=== PATIENT | female | born 1985 | race Caucasian/White ===

== ENCOUNTER → 2016-09-04 | Outpatient (CLI) | payer OTHER ==
[2016-09-04 09:51] LABS: ALBUMIN 3.9 GM/DL (3.2-5.2); ALBUMIN/GLOBULIN RATIO 1.18 (1.00-1.93); ALKALINE PHOSPHATASE 57 U/L (45-117); ALT/SGPT 27 U/L (12-78); ANION GAP 7 MEQ/L (8-16); AST/SGOT 15 U/L (15-37); BILIRUBIN,TOTAL 0.5 MG/DL (0.2-1.0); BLOOD UREA NITROGEN 13 MG/DL (7-18); CALCIUM LEVEL 8.9 MG/DL (8.5-10.1); CARBON DIOXIDE LEVEL 29 MEQ/L (21-32); CHLORIDE LEVEL 106 MEQ/L (98-107); CREATININE FOR GFR 0.68 MG/DL (0.55-1.02); FREE T4 0.84 NG/DL (0.76-1.46); GLOMERULAR FILTRATION RATE > 60.0 (>60); GLUCOSE, FASTING 77 MG/DL (70-105); POTASSIUM SERUM 4.3 MEQ/L (3.5-5.1); SODIUM LEVEL 142 MEQ/L (136-145); THYROID PEROXIDASE ANTIBODY < 28.0 U/ML (<60.0); TOTAL PROTEIN 7.2 GM/DL (6.4-8.2)
== END ==
LOC: M LAB 08:29
PROVIDERS: ATTEND Family Medicine
DX: R63.5 Abnormal weight gain (principal); R94.6 Abnormal results of thyroid function studies

== ENCOUNTER → 2017-01-01 | Outpatient (CLI) | payer OTHER ==
[2017-01-01 07:12] LABS: ANION GAP 7 MEQ/L (8-16); BLOOD UREA NITROGEN 14 MG/DL (7-18); CALCIUM LEVEL 8.5 MG/DL (8.5-10.1); CARBON DIOXIDE LEVEL 29 MEQ/L (21-32); CHLORIDE LEVEL 106 MEQ/L (98-107); CREATININE FOR GFR 0.74 MG/DL (0.55-1.02); GLOMERULAR FILTRATION RATE > 60.0 (>60); GLUCOSE, FASTING 84 MG/DL (70-105); POTASSIUM SERUM 3.8 MEQ/L (3.5-5.1); SODIUM LEVEL 142 MEQ/L (136-145)
== END ==
LOC: M LAB 06:11
PROVIDERS: ATTEND Family Medicine
DX: R73.9 Hyperglycemia, unspecified (principal)

== ENCOUNTER → 2017-01-04 | Outpatient (REF) | payer OTHER | LOC: M LAB REF 17:03 | PROVIDERS: ATTEND Family Medicine | DX: N76.0 Acute vaginitis (principal) ==

== ENCOUNTER → 2017-01-09 | Outpatient (CLI) | payer OTHER ==
[2017-01-09 16:09] LABS: FREE T4 0.9 NG/DL (0.76-1.46)
[2017-01-11 09:45] LABS: FOLLICLE STIMULATING HORMONE 14.8 mIU/mL; LUTEINIZING HORMONE 33.9 mIU/mL
== END ==
LOC: M LAB 14:43
PROVIDERS: ATTEND Family Medicine
DX: L68.0 Hirsutism (principal); F33.1 Major depressive disorder, recurrent, moderate

== ENCOUNTER → 2017-03-31 | Outpatient (CLI) | payer OTHER ==
[2017-03-31 10:18] LABS: FOLLICLE STIMULATING HORMONE 7.7 mIU/mL; LUTEINIZING HORMONE 8.4 mIU/mL
== END ==
LOC: M LAB 06:10
PROVIDERS: ATTEND Family Medicine
DX: E66.09 Other obesity due to excess calories (principal)

== ENCOUNTER → 2017-04-28 | Outpatient (REF) | payer OTHER | LOC: M LAB REF 17:18 | PROVIDERS: ATTEND Physician Assistant Medical | DX: Z11.3 Encounter for screening for infections with a predominantly sexual mode of transmission (principal) ==

== ENCOUNTER → 2017-05-01 | Outpatient (CLI) | payer OTHER | LOC: M LAB 12:39 | PROVIDERS: ATTEND Physician Assistant Medical | DX: Z11.3 Encounter for screening for infections with a predominantly sexual mode of transmission (principal) ==

== ENCOUNTER → 2017-05-17 | Outpatient (REF) | payer OTHER | LOC: M LAB REF 17:09 | PROVIDERS: ATTEND Family Medicine | DX: R30.0 Dysuria (principal) ==

== ENCOUNTER → 2017-07-23 | Outpatient (REF) | payer OTHER | LOC: M LAB REF 15:54 | PROVIDERS: ATTEND Physician Assistant Medical | DX: N93.8 Other specified abnormal uterine and vaginal bleeding (principal) ==

== ENCOUNTER → 2017-08-17 | Outpatient (REF) | payer OTHER | LOC: M LAB REF 12:46 | PROVIDERS: ATTEND Family Medicine | DX: R30.0 Dysuria (principal); Z11.3 Encounter for screening for infections with a predominantly sexual mode of transmission ==

== ENCOUNTER → 2017-09-13 | Outpatient (REF) | payer OTHER | LOC: M LAB REF 09-14 13:19 | DX: R30.0 Dysuria (principal) ==

== ENCOUNTER → 2017-11-14 | Outpatient (REF) | payer OTHER | LOC: M LAB REF 18:36 | DX: R30.0 Dysuria (principal) | CPT/HCPCS: 87186 ==

== ENCOUNTER → 2018-02-24 | Outpatient (CLI) | payer OTHER ==
[2018-02-25 17:44] LABS: HEPATITIS C VIRUS ABY INDEX 0.1 INDEX (<0.8)
[2018-02-25 17:46] LABS: HIV 1&2 SCREEN CENTAUR NEGATIVE (NEGATIVE)
== END ==
LOC: M SMT 15:18
DX: T74.21XA Adult sexual abuse, confirmed, initial encounter (principal); Y07.9 Unspecified perpetrator of maltreatment and neglect

== ENCOUNTER → 2018-02-24 | Outpatient (CLI) | payer OTHER ==
[2018-02-24 17:15] LABS: BASO # 0.1 10^3/uL (0.0-0.2); BASO % 0.5 % (0.0-1.0); EOS # 0.2 10^3/uL (0.0-0.50); EOS % 1.7 % (0.0-3.0); HEMATOCRIT 36.9 % (36.0-47.0); HEMOGLOBIN 12.4 g/dl (12.0-15.5); IMMATURE GRANULOCYTE % 0.3 % (0-3.0); LYMPH # 2.4 10^3/uL (1.5-4.5); LYMPH % 24.7 % (24.0-44.0); MEAN CORPUSCULAR HEMOGLOBIN 31.2 pg (27.0-33.0); MEAN CORPUSCULAR HGB CONC 33.6 g/dl (32.0-36.5); MEAN CORPUSCULAR VOLUME 92.7 fl (80.0-96.0); MONO # 0.6 10^3/uL (0.0-0.8); MONO % 6.2 % (0.0-5.0); NEUTROPHILS # 6.5 10^3/uL (1.8-7.7); NEUTROPHILS % 66.6 % (36.0-66.0); PLATELET COUNT, AUTOMATED 350 10^3/uL (150-450); RED BLOOD COUNT 3.98 10^6/uL (4.00-5.40); RED CELL DISTRIBUTION WIDTH 11.9 % (11.5-14.5); WHITE BLOOD COUNT 9.8 10^3/uL (4.0-10.0)
[2018-02-24 17:31] LABS: TOTAL 25(OH) VITAMIN D 35.8 NG/ML (30.0-100.0)
[2018-02-24 17:35] LABS: FREE T4 0.74 NG/DL (0.76-1.46)
== END ==
LOC: M SMT 15:15
DX: Z13.29 Encounter for screening for other suspected endocrine disorder (principal); F33.1 Major depressive disorder, recurrent, moderate
CPT/HCPCS: 84443

== ENCOUNTER → 2018-05-06 | Outpatient (REF) | payer OTHER | LOC: M LAB REF 15:27 | DX: R30.0 Dysuria (principal) | CPT/HCPCS: 87186 ==

== ENCOUNTER → 2018-06-24 | Outpatient (REF) | payer OTHER ==
[2018-06-24 14:34] LABS: CHLAMYDIA DNA AMPLIFICATION NEGATIVE (NEGATIVE); GC DNA AMPLIFICATION NEGATIVE (NEGATIVE)
== END ==
LOC: M LAB REF 11:40
DX: N39.0 Urinary tract infection, site not specified (principal)
CPT/HCPCS: 87086

== ENCOUNTER → 2018-10-16 | Outpatient (CLI) | payer OTHER ==
[~2018-10-16] MED LIST: CIPR-249 PO; DULO1CAP3 PO; OCEL3TAB PO; RALT40TA PO; TOPI50TA9 PO; TRUVTAB PO; ZOFR4TAB14 PO
[2018-10-16 17:20] LABS: BASO # 0.1 10^3/uL (0.0-0.2); BASO % 0.5 % (0.0-1.0); EOS # 0.2 10^3/uL (0.0-0.50); EOS % 1.7 % (0.0-3.0); HEMATOCRIT 40.3 % (36.0-47.0); HEMOGLOBIN 13.3 g/dl (12.0-15.5); LYMPH # 3.1 10^3/uL (1.5-4.5); MEAN CORPUSCULAR HEMOGLOBIN 30.2 pg (27.0-33.0); MEAN CORPUSCULAR VOLUME 91.4 fl (80.0-96.0); MONO # 0.7 10^3/uL (0.0-0.8); MONO % 7.3 % (0.0-5.0); NEUTROPHILS # 5.9 10^3/uL (1.8-7.7); NEUTROPHILS % 59.2 % (36.0-66.0); PLATELET COUNT, AUTOMATED 327 10^3/uL (150-450); RED BLOOD COUNT 4.41 10^6/uL (4.00-5.40)
[2018-10-16 17:39] LABS: ALBUMIN 3.7 GM/DL (3.2-5.2); ALT/SGPT 31 U/L (12-78); BILIRUBIN,TOTAL 0.3 MG/DL (0.2-1.0); BLOOD UREA NITROGEN 12 MG/DL (7-18); CARBON DIOXIDE LEVEL 24 MEQ/L (21-32); CHLORIDE LEVEL 106 MEQ/L (98-107); FREE T4 0.89 NG/DL (0.76-1.46); GLOMERULAR FILTRATION RATE > 60.0 (>60); GLUCOSE, FASTING 75 MG/DL (70-100); IRON (FE) 131 UG/DL (50-170); PERCENT SATURATION 36.8 % (13.2-45.0); POTASSIUM SERUM 4.5 MEQ/L (3.5-5.1); SODIUM LEVEL 139 MEQ/L (136-145); TOTAL IRON BINDING CAPACITY 356 UG/DL (250-450); TOTAL PROTEIN 7.5 GM/DL (6.4-8.2)
== END ==
LOC: M WUC 13:27
PROVIDERS: ATTEND Physician Assistant
DX: R30.0 Dysuria (principal); R42 Dizziness and giddiness

== ENCOUNTER → 2018-10-25 | Outpatient (REF) | payer OTHER ==
[2018-10-25 22:04] LABS: CHLAMYDIA DNA AMPLIFICATION NEGATIVE (NEGATIVE); GC DNA AMPLIFICATION NEGATIVE (NEGATIVE)
== END ==
LOC: M LAB REF 17:11
PROVIDERS: ATTEND Physician Assistant
DX: N76.0 Acute vaginitis (principal)

== ENCOUNTER → 2019-04-08 | Outpatient (CLI) | payer OTHER ==
[~2019-04-08] MED LIST changes: -DULO1CAP3 PO; +DULO1CAP6 PO
[2019-04-08 09:19] LABS: BASO % 0.6 % (0.0-1.0); EOS # 0.2 10^3/uL (0.0-0.50); EOS % 3.2 % (0.0-3.0); HEMATOCRIT 39.4 % (36.0-47.0); HEMOGLOBIN 12.7 g/dl (12.0-15.5); LYMPH # 1.9 10^3/uL (1.5-4.5); LYMPH % 29.9 % (24.0-44.0); MEAN CORPUSCULAR HEMOGLOBIN 30.1 pg (27.0-33.0); MEAN CORPUSCULAR HGB CONC 32.2 g/dl (32.0-36.5); MEAN CORPUSCULAR VOLUME 93.4 fl (80.0-96.0); MONO # 0.4 10^3/uL (0.0-0.8); MONO % 7.1 % (0.0-5.0); NEUTROPHILS # 3.6 10^3/uL (1.8-7.7); NEUTROPHILS % 58.9 % (36.0-66.0); PLATELET COUNT, AUTOMATED 326 10^3/uL (150-450); RED BLOOD COUNT 4.22 10^6/uL (4.00-5.40); WHITE BLOOD COUNT 6.2 10^3/uL (4.0-10.0)
[2019-04-08 10:00] LABS: ALBUMIN 3.3 GM/DL (3.2-5.2); ALT/SGPT 27 U/L (12-78); BILIRUBIN,TOTAL 0.2 MG/DL (0.2-1.0); BLOOD UREA NITROGEN 15 MG/DL (7-18); CARBON DIOXIDE LEVEL 24 MEQ/L (21-32); CHLORIDE LEVEL 112 MEQ/L (98-107); CREATININE FOR GFR 0.75 MG/DL (0.55-1.30); FREE T4 0.74 NG/DL (0.76-1.46); GLOMERULAR FILTRATION RATE > 60.0 (>60); GLUCOSE, FASTING 94 MG/DL (70-100); POTASSIUM SERUM 4.5 MEQ/L (3.5-5.1); SODIUM LEVEL 144 MEQ/L (136-145); TOTAL PROTEIN 6.9 GM/DL (6.4-8.2)
[2019-04-10 11:32] LABS: THYROID PEROXIDASE ANTIBODY < 28.0 U/ML (<60.0)
== END ==
LOC: M LAB 08:41
PROVIDERS: ATTEND Physician Assistant
DX: Z13.29 Encounter for screening for other suspected endocrine disorder (principal)

== ENCOUNTER → 2019-08-07 | Outpatient (CLI) | payer OTHER ==
[2019-08-07 07:27] LABS: BASO # 0.1 10^3/uL (0.0-0.2); BASO % 0.6 % (0.0-1.0); EOS # 0.2 10^3/uL (0.0-0.5); HEMATOCRIT 40.5 % (36.0-47.0); HEMOGLOBIN 12.9 g/dl (12.0-15.5); LYMPH # 1.9 10^3/uL (1.5-5.0); LYMPH % 20.4 % (24.0-44.0); MEAN CORPUSCULAR HEMOGLOBIN 30.3 pg (27.0-33.0); MEAN CORPUSCULAR HGB CONC 31.9 g/dl (32.0-36.5); MEAN CORPUSCULAR VOLUME 95.1 fl (80.0-96.0); MONO # 0.5 10^3/uL (0.0-0.8); MONO % 5.8 % (0.0-5.0); NEUTROPHILS # 6.5 10^3/uL (1.5-8.5); PLATELET COUNT, AUTOMATED 318 10^3/uL (150-450); RED BLOOD COUNT 4.26 10^6/uL (4.00-5.40); WHITE BLOOD COUNT 9.1 10^3/uL (4.0-10.0)
[2019-08-07 08:04] LABS: ALBUMIN 3.4 GM/DL (3.2-5.2); ALT/SGPT 29 U/L (12-78); BILIRUBIN,TOTAL 0.4 MG/DL (0.2-1.0); BLOOD UREA NITROGEN 14 MG/DL (7-18); CALCIUM LEVEL 9.2 MG/DL (8.5-10.1); CARBON DIOXIDE LEVEL 24 MEQ/L (21-32); CHLORIDE LEVEL 109 MEQ/L (98-107); CREATININE FOR GFR 0.94 MG/DL (0.55-1.30); FREE T4 0.82 NG/DL (0.76-1.46); GLOMERULAR FILTRATION RATE > 60.0 (>60); GLUCOSE, FASTING 84 MG/DL (70-100); POTASSIUM SERUM 4.5 MEQ/L (3.5-5.1); SODIUM LEVEL 140 MEQ/L (136-145); TOTAL PROTEIN 7.2 GM/DL (6.4-8.2)
== END ==
LOC: M LAB 06:51
PROVIDERS: ATTEND Physician Assistant
DX: Z13.29 Encounter for screening for other suspected endocrine disorder (principal)

== ENCOUNTER → 2019-10-06 | Outpatient (CLI) | payer OTHER ==
[2019-10-06 16:18] LABS: BASO % 0.5 % (0.0-1.0); EOS # 0.2 10^3/uL (0.0-0.5); EOS % 2.1 % (0.0-3.0); HEMATOCRIT 38.7 % (36.0-47.0); HEMOGLOBIN 12.5 g/dl (12.0-15.5); LYMPH # 2.4 10^3/uL (1.5-5.0); LYMPH % 26.9 % (24.0-44.0); MEAN CORPUSCULAR HEMOGLOBIN 31.1 pg (27.0-33.0); MEAN CORPUSCULAR HGB CONC 32.3 g/dl (32.0-36.5); MEAN CORPUSCULAR VOLUME 96.3 fl (80.0-96.0); MONO # 0.6 10^3/uL (0.0-0.8); MONO % 6.3 % (0.0-5.0); NEUTROPHILS # 5.6 10^3/uL (1.5-8.5); NEUTROPHILS % 63.9 % (36.0-66.0); PLATELET COUNT, AUTOMATED 314 10^3/uL (150-450); RED BLOOD COUNT 4.02 10^6/uL (4.00-5.40); WHITE BLOOD COUNT 8.7 10^3/uL (4.0-10.0)
[2019-10-06 16:25] LABS: ALBUMIN 3.3 GM/DL (3.2-5.2); ALT/SGPT 26 U/L (12-78); BILIRUBIN,TOTAL 0.2 MG/DL (0.2-1.0); BLOOD UREA NITROGEN 16 MG/DL (7-18); CALCIUM LEVEL 8.9 MG/DL (8.5-10.1); CARBON DIOXIDE LEVEL 24 MEQ/L (21-32); CHLORIDE LEVEL 110 MEQ/L (98-107); CREATININE FOR GFR 0.81 MG/DL (0.55-1.30); GLOMERULAR FILTRATION RATE > 60.0 (>60); GLUCOSE, FASTING 100 MG/DL (70-100); POTASSIUM SERUM 4.4 MEQ/L (3.5-5.1); RHEUMATOID FACTOR QUANT < 10.0 IU/ML (<15.0); SODIUM LEVEL 140 MEQ/L (136-145); TOTAL PROTEIN 6.8 GM/DL (6.4-8.2)
[2019-10-06 16:33] LABS: TOTAL 25(OH) VITAMIN D 30.1 NG/ML (30.0-100.0)
[2019-10-06 17:45] LABS: ERYTHROCYTE SEDIMENTATION RATE 45 mm/hr (0-20)
[2019-10-10 00:07] LABS: ANTINUCLEAR ANTIBODIES DIRECT Negative (Negative)
== END ==
LOC: M WUC 12:15
PROVIDERS: ATTEND Psychiatry & Neurology Neurology
DX: R51 Headache (principal)

== ENCOUNTER → 2019-10-28 | Outpatient (CLI) | payer OTHER ==
--- NOTE | 2019-10-31 17:37 | SLEEPCENT ---
DATE OF PROCEDURE: 10/28/2019 ORDERED BY: LUI Ruiz Nocturnal polysomnography was performed for evaluation of sleep physiology in this patient with a history of excessive somnolence, snoring, morning headaches and nonrestorative sleep. 7 hours and 5 minutes of data were reviewed. There were 364.5 minutes of sleep identified. Sleep latency was mildly prolonged at 36.5 minutes. Rapid eye movement (REM) latency was more so prolonged at 144 minute. Sleep architecture was good with two REM cycles noted. Overall sleep efficiency was 87.3%. The electrocardiogram showed a sinus rhythm with an average heart rate of 78 beats per minute. Rate ranged 60-90. EEG showed normal waveforms for awake and sleep. There were only 8 respiratory events identified of 10 seconds in duration or greater for an apnea-hypopnea index well within normal limits at 1.3. Some snoring was noted, but respiratory related arousals occurred only 0.5 times per hour. There were no oxygen desaturations. Minimal activity in the limb leads. No trains of events. Limb movement arousal index 4.1. IMPRESSION: Normal nocturnal polysomnography with snoring.
== END ==
LOC: M SLEEP 20:00
PROVIDERS: ATTEND Nurse Practitioner Adult Health
DX: G47.30 Sleep apnea, unspecified (principal)

== ENCOUNTER → 2019-11-03 | Outpatient (CLI) | payer OTHER ==
[2019-11-03 08:49] LABS: FREE T4 0.81 NG/DL (0.76-1.46); THYROID STIMULATING HORMONE 2.55 uIU/ML (0.358-3.740)
[2019-11-03 09:03] LABS: THYROGLOBULIN ANTIBODY 17.7 U/ML (<60.0)
== END ==
LOC: M LAB 07:26
PROVIDERS: ATTEND Family Medicine
DX: R94.6 Abnormal results of thyroid function studies (principal); R51 Headache

== ENCOUNTER → 2019-11-03 | Outpatient (CLI) | payer OTHER | LOC: M LAB 07:28 | PROVIDERS: ATTEND Psychiatry & Neurology Neurology | DX: R51 Headache (principal) ==

== ENCOUNTER 2019-12-26 08:12 | Emergency (ER) | payer OTHER ==
[~2019-12-26] VITALS: Ht 167.6 cm; Wt 94.0 kg
[2019-12-26] MEDS ORDERED: LEXA1TAB2 PO (08:22)
[2019-12-26] MEDS ORDERED: SUMA50TA2 (08:22)
[2019-12-26] MEDS ORDERED: BUPR150T3 (08:22)
[2019-12-26] MEDS ORDERED: KETOROLAC 30 MG/ML 1ML VIAL IV ONE (08:45)
[2019-12-26] MEDS ORDERED: NS 1,000 ML IV ONE (08:45)
[2019-12-26] MEDS ORDERED: ISOVUE-370 76% 100ML VIAL As Ordered ONE (08:57)
[2019-12-26 09:04] LABS: BASO # 0.1 10^3/uL (0.0-0.2); BASO % 0.4 % (0.0-1.0); EOS # 0.1 10^3/uL (0.0-0.5); EOS % 0.4 % (0.0-3.0); HEMATOCRIT 40.2 % (36.0-47.0); HEMOGLOBIN 13.5 g/dl (12.0-15.5); LYMPH # 1.9 10^3/uL (1.5-5.0); LYMPH % 13.7 % (24.0-44.0); MEAN CORPUSCULAR HEMOGLOBIN 31.1 pg (27.0-33.0); MEAN CORPUSCULAR HGB CONC 33.6 g/dl (32.0-36.5); MEAN CORPUSCULAR VOLUME 92.6 fl (80.0-96.0); NEUTROPHILS % 78.1 % (36.0-66.0); PLATELET COUNT, AUTOMATED 339 10^3/uL (150-450); RED BLOOD COUNT 4.34 10^6/uL (4.00-5.40); WHITE BLOOD COUNT 14.1 10^3/uL (4.0-10.0)
[2019-12-26 09:27] LABS: ALBUMIN 3.4 GM/DL (3.2-5.2); BILIRUBIN,DIRECT 0.1 MG/DL (0.0-0.2); BILIRUBIN,TOTAL 0.4 MG/DL (0.2-1.0); TOTAL PROTEIN 7.4 GM/DL (6.4-8.2)
[2019-12-26] MEDS ORDERED: NORC1TAB7 PO (09:59)
[2019-12-26 10:07] VITALS: BP 120/67
--- NOTE | 2019-12-26 10:09 | REP ---
REASON FOR EXAM: Right-sided pain. PRIORS: None. CONTRAST: 100 mL of Isovue 370. The lung bases are clear. The liver, spleen, pancreas, adrenal glands, and left kidney are within normal limits. Surgical clips are see in the gallbladder fossa from previously cholecystectomy. There is moderate right-sided hydronephrosis and right renal enlargement. There is proximal right-sided hydroureter. There is a 9 mm sized ureteroliths responsible for the findings. This ureterolith is approximately 4 cm from the ureteropelvic junction. There is a small amount of right perinephric fluid. The left renal vein is retroaortic. The abdominal aorta and para-aortic regions are otherwise unremarkable. The bowel loops and their mesenteries are within normal limits. The appendix is well visualized and is within normal limits. There is no free air within the abdomen. There is no free fluid or air in the pelvis. There is no evidence of a pelvic mass. The pelvic bowel loops are within normal limits. Bone window technique throughout the examination shows the osseous structures to be within normal limits. IMPRESSION: There is a proximal right ureterolith as described above with resultant findings. Electronically Signed by Umer Brand DO 12/26/2019 10:23 A
[2020-01-01] MEDS ORDERED: MAGN200T PO (14:14)
[2020-01-01] MEDS ORDERED: IRON325T2 PO (14:14)
[2020-01-01] MEDS ORDERED: OMEP-218 PO (14:14)
[2020-01-01] MEDS ORDERED: VITA500079 PO (14:14)
== END 2019-12-26 10:18 | disposition home or self-care (01) ==
LOC: M ED 08:12
DX: N20.1 Calculus of ureter (principal); N13.39 Other hydronephrosis; D72.829 Elevated white blood cell count, unspecified; E78.5 Hyperlipidemia, unspecified; F32.9 Major depressive disorder, single episode, unspecified; G43.909 Migraine, unspecified, not intractable, without status migrainosus; Z87.440 Personal history of urinary (tract) infections; K21.9 Gastro-esophageal reflux disease without esophagitis; Z88.2 Allergy status to sulfonamides; Z79.899 Other long term (current) drug therapy
CPT/HCPCS: 74177; 80047; 80076; 81001; 83690; 84702; 85025; 87040; 87086; 96374; 99284; J1885; Q9967

== ENCOUNTER → 2020-01-01 | Outpatient (CLI) | payer OTHER ==
[~2020-01-01] MED LIST changes: +BUPR150T3; +IRON325T2 PO; +LEXA1TAB2 PO; +MAGN200T PO; +NORC1TAB7 PO; +OMEP-218 PO; +SUMA50TA2; +VITA500079 PO
== END ==
LOC: M LABSMTC 10:56
PROVIDERS: ATTEND Anesthesiology
DX: Z01.818 Encounter for other preprocedural examination (principal); Z11.59 Encounter for screening for other viral diseases
CPT/HCPCS: C9803; U0003

== ENCOUNTER 2020-01-04 08:47 | Day surgery (SDC) | payer OTHER ==
[~2020-01-04] VITALS: Ht 167.6 cm; Wt 93.9 kg
[~2020-01-04 08:47] MED LIST changes: +LR 1,000 ML IV ONE; +ceFAZolin SOD 2 GM in IV 1 EA IV ONE
[2020-01-04 09:26] LABS: INR 0.98; PROTHROMBIN TIME 12.7 SECONDS (11.8-14.0)
[2020-01-04] MEDS ORDERED: SCOPOLAMINE 1MG TRANSDERMAL PATCH As Ordered ONE (09:53)
[2020-01-04] MEDS ORDERED: SCOPOLAMINE 1MG TRANSDERMAL PATCH TOP ONE (10:00)
[2020-01-04] MEDS ORDERED: CONRAY-60 60% 50ML VIAL (Q9961) As Ordered ONE (10:02)
[2020-01-04] MEDS ORDERED: fentaNYL 100 MCG/2 ML INJECTION (J3010) As Ordered ONE (10:06)
[2020-01-04] MEDS ORDERED: dexameTHASONE 4 MG/ML 1ML VIAL (J1100 PER 1MG) As Ordered ONE (10:06)
[2020-01-04] MEDS ORDERED: ONDANSETRON 4MG/2ML VIAL As Ordered ONE (10:06)
[2020-01-04] MEDS ORDERED: MIDAZOLAM INJ 2MG/2ML VIAL (J2250 PER 1MG) As Ordered ONE (10:06)
[2020-01-04] MEDS ORDERED: LIDOCAINE 2% 100MG/5ML SDV (FOR ANES.) As Ordered ONE (10:06)
[2020-01-04] MEDS ORDERED: propofoL 200 MG/20 ML VIAL As Ordered ONE ×2 (10:07→12:07)
[2020-01-04] MEDS ORDERED: ACETAMINOPHEN 1000MG 100ML IV BTL (OFIRMEV) (J0131 PER 10MG) As Ordered ONE (10:32)
[2020-01-04] MEDS ORDERED: PHENYLephrine HCL 500 MCG/5 ML (100MCG/ML) SYRINGE (J2370) As Ordered ONE (10:47)
[2020-01-04] MEDS ORDERED: PERCOCET 5MG/325MG TAB PO PRN (11:30)
[2020-01-04] MEDS ORDERED: ONDANSETRON 4MG/2ML VIAL IV PRN (11:30)
[2020-01-04] MEDS ORDERED: oxyBUTYnin 5 MG TAB PO PRN (11:30)
[2020-01-04] MEDS ORDERED: fentaNYL 100 MCG/2 ML INJECTION (J3010) IV PRN (11:30)
[2020-01-04] MEDS ORDERED: oxyCODONE 5MG TAB PO PRN (11:30)
[2020-01-04] MEDS ORDERED: LR 1,000 ML IV SCH (11:30)
--- NOTE | 2020-01-04 12:02 | REP ---
C-ARM VIEWS ABDOMEN AND PELVIS: Three C-arm views of the abdomen and pelvis performed during placement of a right ureteral stent. Contrast partially opacifies the right pelvicaliceal system. Right ureteral stent is placed with the proximal end coiled in the renal pelvis in the distal end of the urinary bladder. 15 seconds of fluoroscopy time utilized. Electronically Signed by Alexis Fagan MD 01/04/2020 12:58 P
[2020-01-04 13:17] VITALS: BP 119/83
--- NOTE | 2020-01-09 10:41 | RO ---
DATE OF PROCEDURE: 01/04/2020 PREPROCEDURE DIAGNOSIS: Right kidney stones. POSTPROCEDURE DIAGNOSIS: Right kidney stones. PROCEDURE: Cystoscopy, right ureteroscopy with laser lithotripsy and basket extraction of stones, right retrograde pyelogram with intraoperative interpretation of the images, right ureteral stent placement. SURGEON: Dr. Jin Parks. HOUSEKEEPING ROOM ATTENDANT: None. ANESTHESIA: General. OPERATIVE INDICATIONS: This is a 34-year-old female who was found to have an obstructing 9 mm proximal right ureteral stone as well as an additional small stone in the kidney. She was brought to the operating room today for treatment. DESCRIPTION OF PROCEDURE: The patient brought to the operating room and general anesthesia was induced. Prophylactic antibiotics were infused. She was then placed in the dorsal lithotomy position and prepped and draped in the usual sterile fashion. A rigid cystoscope was inserted into the urethral meatus and advanced into the bladder. The guidewire was advanced up the right collecting system. The ureteral access sheath was then advanced up the right collecting system. I went up the access sheath with a flexible ureteroscope and no stones were seen in the proximal ureter. The right kidney was thoroughly examined and the patient had a few small stones in the mid pole calices. The 9 mm stone appeared to have been pushed up into the kidney and was now in the lower pole calyx. The smaller stones were removed using a basket. The 9 mm stone was repositioned into another calyx and then it was broken down into smaller pieces using the 272 micron laser fiber. All the fragments were then removed using a basket. Once I thought all the fragments were removed, a retrograde pyelogram was performed and was notable for mild right hydronephrosis with no extravasation. I then withdrew the ureteroscope along with the access sheath and no additional stones were seen in the ureter. I utilized the wire to advance a 6-[place] x 22-32 cm JJ ureteral stent into the right collecting system. The wire was removed and there were adequate curls of the stent in the right renal pelvis and in the bladder. The bladder was then emptied of all fluids. This marked the conclusion of the procedure. The patient was taken out of the dorsal lithotomy position, awakened from anesthesia and transported to the recovery room in stable condition. ESTIMATED BLOOD LOSS: 5 mm. COMPLICATIONS: None. SPECIMENS: Kidney stone fragments. PLAN: The patient will followup in clinic in a week or two for stent removal. MTDD
== END 2020-01-04 13:35 | disposition home or self-care (01) ==
LOC: M SDC 08:47
PROVIDERS: ATTEND Urology
DX: N20.1 Calculus of ureter (principal); K21.9 Gastro-esophageal reflux disease without esophagitis; F32.9 Major depressive disorder, single episode, unspecified; G43.909 Migraine, unspecified, not intractable, without status migrainosus; Z79.899 Other long term (current) drug therapy; Z88.2 Allergy status to sulfonamides
CPT/HCPCS: 36415; 52356; 74420; 81025; 82365; 85610; 88300; C1769; C1894; C2617; J0131; J0690; J1100; J2250; J2370; J2405; J3010; Q9961

== ENCOUNTER → 2020-01-23 | Outpatient (REF) | payer OTHER ==
[~2020-01-23] MED LIST changes: -LR 1,000 ML IV ONE; -ceFAZolin SOD 2 GM in IV 1 EA IV ONE
[2020-01-23 19:27] LABS: APPEARANCE, URINE CLOUDY (CLEAR); BACTERIA, URINE AUTO 3+ (NEGATIVE); BILIRUBIN, URINE AUTO NEGATIVE (NEGATIVE); BLOOD, URINE BLOOD 3+ (NEGATIVE); CALCIUM OXALATE CRYSTALS SMALL; COLOR, URINE AMBER (YELLOW); GLUCOSE, URINE (UA) AUTO NEGATIVE (NEGATIVE); KETONE, URINE AUTO 1+ mg/dL (NEGATIVE); LEUKOCYTE ESTERASE, URINE AUTO 2+ (NEGATIVE); MUCUS, URINE LARGE (NEGATIVE); NITRITE, URINE AUTO NEGATIVE (NEGATIVE); PROTEIN, URINE AUTO 2+ mg/dL (NEGATIVE); RBC, URINE AUTO 32 /HPF (0-3); SQUAMOUS EPITHELIAL CELL UR AU 2 /HPF (0-6); WBC, URINE AUTO TNTC /HPF (0-3)
== END ==
LOC: M SMT 17:21
PROVIDERS: ATTEND Urology
DX: R30.0 Dysuria (principal)

== ENCOUNTER → 2020-06-21 | Outpatient (REF) | payer OTHER | LOC: M SFHCRHEU 09:42 | PROVIDERS: ATTEND Internal Medicine | DX: Z53.9 Procedure and treatment not carried out, unspecified reason (principal); R79.82 Elevated C-reactive protein (CRP); R53.82 Chronic fatigue, unspecified; I73.00 Raynaud's syndrome without gangrene; K52.9 Noninfective gastroenteritis and colitis, unspecified ==

== ENCOUNTER → 2020-06-22 | Outpatient (CLI) | payer OTHER ==
[2020-06-22 13:38] LABS: BASO % 0.5 % (0.0-1.0); EOS # 0.2 10^3/uL (0.0-0.5); EOS % 2.2 % (0.0-3.0); HEMATOCRIT 38.3 % (36.0-47.0); HEMOGLOBIN 12.2 g/dl (12.0-15.5); LYMPH % 26.7 % (24.0-44.0); MEAN CORPUSCULAR HEMOGLOBIN 29.8 pg (27.0-33.0); MEAN CORPUSCULAR HGB CONC 31.9 g/dl (32.0-36.5); MEAN CORPUSCULAR VOLUME 93.6 fl (80.0-96.0); MONO # 0.6 10^3/uL (0.0-0.8); MONO % 7.2 % (0.0-5.0); NEUTROPHILS # 4.8 10^3/uL (1.5-8.5); NEUTROPHILS % 63.1 % (36.0-66.0); PLATELET COUNT, AUTOMATED 309 10^3/uL (150-450); RED BLOOD COUNT 4.09 10^6/uL (4.00-5.40); WHITE BLOOD COUNT 7.6 10^3/uL (4.0-10.0)
[2020-06-22 14:09] LABS: ALBUMIN 3.4 GM/DL (3.2-5.2); ALT/SGPT 27 U/L (12-78); BILIRUBIN,TOTAL 0.4 MG/DL (0.2-1.0); BLOOD UREA NITROGEN 11 MG/DL (7-18); C REACTIVE PROTEIN QUANTITATIV 1.35 MG/DL (0.00-0.30); CALCIUM LEVEL 8.8 MG/DL (8.5-10.1); CARBON DIOXIDE LEVEL 23 MEQ/L (21-32); CHLORIDE LEVEL 109 MEQ/L (98-107); COMPLEMENT C3 152 MG/DL (90-180); COMPLEMENT C4 30 MG/DL (10-40); CREATININE FOR GFR 0.95 MG/DL (0.55-1.30); FREE T4 0.76 NG/DL (0.76-1.46); GLOMERULAR FILTRATION RATE > 60.0 (>60); GLUCOSE, FASTING 85 MG/DL (70-100); IRON (FE) 89 UG/DL (50-170); PERCENT SATURATION 24.4 % (13.2-45.0); SODIUM LEVEL 139 MEQ/L (136-145); TOTAL IRON BINDING CAPACITY 365 UG/DL (250-450)
[2020-06-22 14:12] LABS: ERYTHROCYTE SEDIMENTATION RATE 57 mm/hr (0-20)
[2020-06-24 11:10] LABS: THYROID PEROXIDASE ANTIBODY < 28.0 U/ML (<60.0); VITAMIN B12 LEVEL 222 PG/ML (247-911)
[2020-06-24 11:11] LABS: FOLATE 15.2 NG/ML (>5.4)
[2020-06-25 14:12] LABS: ALBUMIN 3.94 GM/DL (3.29-5.55); ALBUMIN % 56.3 % (55.8-66.1); ALPHA-1-GLOBULIN % 4.9 % (2.9-4.9); BETA-1-GLOBULINS % 6.5 % (4.7-7.2); BETA-2-GLOBULINS % 5.9 % (3.2-6.5); GAMMA GLOBULIN % 14.4 % (11.1-18.8)
[2020-06-25 14:13] LABS: ALPHA-1-GLOBULINS 0.34 GM/DL (0.17-0.41); ALPHA-2-GLOBULINS 0.84 GM/DL (0.42-0.99); BETA-1-GLOBULINS 0.46 GM/DL (0.28-0.60); BETA-2-GLOBULINS 0.41 GM/DL (0.19-0.55); GAMMA GLOBULINS 1.01 GM/DL (0.65-1.58)
[2020-06-26 11:04] LABS: DRVV SCREEN 44.1 SEC
[2020-06-26 11:06] LABS: PTT LUPUS TYPE ANTICOAG SCREEN 1.1 (0-1.2)
[2020-06-26 17:25] LABS: ANTI CENTROMERE ANTIBODY <0.2 AI (0.0-0.9); ANTI SCLERODERMA ANTIBODIES <0.2 AI (0.0-0.9); BETA-2 GLYCOPROTEIN I ABY IGA <9 (0-25); BETA-2 GLYCOPROTEIN I ABY IGG <9 (0-20); BETA-2 GLYCOPROTEIN I ABY IGM <9 (0-32); CARDIOLIPIN IGA ANTIBODY <9 APL U/mL (0-11); CARDIOLIPIN IGG ANTIBODY <9 GPL U/mL (0-14); CARDIOLIPIN IGM ANTIBODY 10 MPL U/mL (0-12); Lyme Disease IgG/IgM Antibodie <0.91 ISR (0.00-0.90); Lyme Disease IgM Ab Quantitati <0.80 index (0.00-0.79); RNP ANTIBODY < 0.2 AI (0.0-0.9); SMITHS ANTIBODY < 0.2 AI (0.0-0.9)
== END ==
LOC: M WUC 10:42
PROVIDERS: ATTEND Internal Medicine
DX: R53.82 Chronic fatigue, unspecified (principal); I73.00 Raynaud's syndrome without gangrene; K52.9 Noninfective gastroenteritis and colitis, unspecified

== ENCOUNTER → 2020-10-02 | Outpatient (CLI) | payer OTHER ==
[~2020-10-02] MED LIST changes: -BUPR150T3; +BUPR150T4
[2020-10-02 07:35] LABS: BASO % 0.5 % (0.0-1.0); EOS # 0.2 10^3/uL (0.0-0.5); EOS % 2.4 % (0.0-3.0); HEMOGLOBIN 12.3 g/dl (12.0-15.5); LYMPH # 2.1 10^3/uL (1.5-5.0); LYMPH % 25.7 % (24.0-44.0); MEAN CORPUSCULAR HEMOGLOBIN 30.1 pg (27.0-33.0); MEAN CORPUSCULAR HGB CONC 32.4 g/dl (32.0-36.5); MEAN CORPUSCULAR VOLUME 93.1 fl (80.0-96.0); MONO # 0.6 10^3/uL (0.0-0.8); MONO % 7.6 % (0.0-5.0); NEUTROPHILS # 5.3 10^3/uL (1.5-8.5); NEUTROPHILS % 63.4 % (36.0-66.0); PLATELET COUNT, AUTOMATED 314 10^3/uL (150-450); RED BLOOD COUNT 4.08 10^6/uL (4.00-5.40); WHITE BLOOD COUNT 8.3 10^3/uL (4.0-10.0)
[2020-10-02 08:04] LABS: BLOOD UREA NITROGEN 16 MG/DL (7-18); CREATININE FOR GFR 0.96 MG/DL (0.55-1.30); FERRITIN 76 NG/ML (8-252); GLOMERULAR FILTRATION RATE > 60.0 (>60); IRON (FE) 67 UG/DL (50-170); PERCENT SATURATION 20.6 % (13.2-45.0); TOTAL IRON BINDING CAPACITY 326 UG/DL (250-450)
[2020-10-02 09:21] LABS: FOLATE 9.1 NG/ML; VITAMIN B12 LEVEL 264 PG/ML
[2020-10-04 16:09] LABS: ANCA-ATYPICAL <1:20 titer (Neg:<1:20); ANTI-PARIETAL CELL ANTIBODY 2.1 Units (0.0-20.0); ANTI-SACCHAROMYCES CEREV. IgA <20.0 Units (0.0-24.9); ANTI-SACCHAROMYCES CEREV. IgG 26.1 Units (0.0-24.9); CYTOPLASMIC NEUTROP AB ANCA-C <1:20 titer (Neg:<1:20); IGASUB2 203.4 mg/dL (73.2-301.2); IGASUB3 37.2 mg/dL (13.4-97.9); IgA SERUM (part of Subclasses) 259 mg/dL (87-352); PERINUCLEAR AB ANCA-P <1:20 titer (Neg:<1:20); TISSUE TRANSGLUTAMINASE IgA 9 U/mL (0-3)
== END ==
LOC: M LAB 06:23
PROVIDERS: ATTEND Internal Medicine Gastroenterology
DX: E61.1 Iron deficiency (principal); D51.9 Vitamin B12 deficiency anemia, unspecified; G43.909 Migraine, unspecified, not intractable, without status migrainosus

== ENCOUNTER → 2020-10-02 | Outpatient (CLI) | payer OTHER ==
[2020-10-04 14:09] LABS: TOPIRAMATE LEVEL 9.7 ug/mL (2.0-25.0)
== END ==
LOC: M LAB 06:25
PROVIDERS: ATTEND Physician Assistant Medical
DX: G43.909 Migraine, unspecified, not intractable, without status migrainosus (principal)

== ENCOUNTER → 2020-10-24 | Outpatient (CLI) | payer OTHER ==
[~2020-10-24] MED LIST changes: +BUPR150T12; -BUPR150T4; +DROS3TAB; +FISH1000 PO; -SUMA50TA2; +SUMA50TA2 PO
== END ==
LOC: M LABSMTC 11:52
PROVIDERS: ATTEND Anesthesiology
DX: Z01.812 Encounter for preprocedural laboratory examination (principal); Z20.822 Contact with and (suspected) exposure to COVID-19

== ENCOUNTER 2020-10-29 09:57 | Day surgery (SDC) | payer OTHER ==
[~2020-10-29] VITALS: Ht 167.6 cm; Wt 94.1 kg
[2020-10-29] MEDS ORDERED: NS 1,000 ML IV ONE (10:20)
[2020-10-29] MEDS ORDERED: propofoL 200 MG/20 ML VIAL As Ordered ONE (12:07)
--- NOTE | 2020-10-29 12:15 | ROOR ---
Patient Name: Karli Zhou Procedure Date: 10/29/2020 11:24 AM Date of : 1985 Age: 34 Room: [facility] Gender: Female Note Status: Finalized Procedure: Upper GI endoscopy Indications: Epigastric abdominal pain Providers: Newton Skinner MD Referring MD: Viv HENNESSY DO Requesting Provider: Medicines: Monitored Anesthesia Care Complications: No immediate complications. Procedure: Pre-Anesthesia Assessment: - Prior to the procedure, a History and Physical was performed, and patient medications and allergies were reviewed. The patient is competent. The risks and benefits of the procedure and the sedation options and risks were discussed with the patient. All questions were answered and informed consent was obtained. Patient identification and proposed procedure were verified by the physician, the nurse and the anesthesiologist in the procedure room. Mental Status Examination: alert and oriented. Airway Examination: normal oropharyngeal airway and neck mobility. Respiratory Examination: clear to auscultation. CV Examination: normal. Prophylactic Antibiotics: The patient does not require prophylactic antibiotics. Prior Anticoagulants: The patient has taken no previous anticoagulant or antiplatelet agents. ASA Grade Assessment: II - A patient with mild systemic disease. After reviewing the risks and benefits, the patient was deemed in satisfactory condition to undergo the procedure. The anesthesia plan was to use monitored anesthesia care (MAC). Immediately prior to administration of medications, the patient was re-assessed for adequacy to receive sedatives. The heart rate, respiratory rate, oxygen saturations, blood pressure, adequacy of pulmonary ventilation, and response to care were monitored throughout the procedure. The physical status of the patient was re-assessed after the procedure. The Endoscope was introduced through the mouth, and advanced to the second part of duodenum. The upper GI endoscopy was accomplished without difficulty. The patient tolerated the procedure well. Findings: A medium-sized hiatal hernia was present. The Z-line was regular and was found 35 cm from the incisors. Scattered mild inflammation characterized by erythema, friability and granularity was found in the gastric antrum. Four biopsies were obtained with cold forceps for histology in the gastric antrum, as well as four biopsies in the gastric body. Verification of patient identification for the specimen was done by the physician and nurse using the patient's name, date and medical record number. Estimated blood loss was minimal. The duodenal bulb and second portion of the duodenum were normal. Impression: - Medium-sized hiatal hernia. - Z-line regular, 35 cm from the incisors. - Gastritis. - Normal duodenal bulb and second portion of the duodenum. - Biopsies performed in the gastric antrum and in the gastric body. Recommendation: - Patient has a contact number available for emergencies. The signs and symptoms of potential delayed complications were discussed with the patient. Return to normal activities tomorrow. Written discharge instructions were provided to the patient. - High fiber diet. - Continue present medications. - Follow an antireflux regimen. - Await pathology results. - Telephone GI clinic for pathology results in 2 weeks. - Return to primary care physician. Procedure Code(s): --- Professional --- 00850, Esophagogastroduodenoscopy, flexible, transoral; with biopsy, single or multiple Diagnosis Code(s): --- Professional --- K44.9, Diaphragmatic hernia without obstruction or gangrene K29.70, Gastritis, unspecified, without bleeding R10.13, Epigastric pain CPT copyright 2019 [employer]. All rights reserved. The codes documented in this report are preliminary and upon remote inpatient coder review may be revised to meet current compliance requirements. Newton Skinner MD Newton Skinner MD 10/29/2020 12:14:39 PM Electronically signed by Newton Skinner MD Number of Addenda: 0 Note Initiated On: 10/29/2020 11:24 AM Estimated Blood Loss: Estimated blood loss was minimal.
--- NOTE | 2020-10-29 12:18 | ROOR ---
Patient Name: Karli Zhou Procedure Date: 10/29/2020 11:24 AM Date of : 1985 Age: 34 Room: [facility] Gender: Female Note Status: Finalized Procedure: Colonoscopy Indications: Chronic diarrhea Providers: Newton Skinner MD Referring MD: Viv HENNESSY DO Requesting Provider: Medicines: Monitored Anesthesia Care Complications: No immediate complications. Procedure: Pre-Anesthesia Assessment: - Prior to the procedure, a History and Physical was performed, and patient medications and allergies were reviewed. The patient is competent. The risks and benefits of the procedure and the sedation options and risks were discussed with the patient. All questions were answered and informed consent was obtained. Patient identification and proposed procedure were verified by the physician, the nurse and the anesthesiologist in the procedure room. Mental Status Examination: alert and oriented. Airway Examination: normal oropharyngeal airway and neck mobility. Respiratory Examination: clear to auscultation. CV Examination: normal. Prophylactic Antibiotics: The patient does not require prophylactic antibiotics. Prior Anticoagulants: The patient has taken no previous anticoagulant or antiplatelet agents. ASA Grade Assessment: II - A patient with mild systemic disease. After reviewing the risks and benefits, the patient was deemed in satisfactory condition to undergo the procedure. The anesthesia plan was to use monitored anesthesia care (MAC). Immediately prior to administration of medications, the patient was re-assessed for adequacy to receive sedatives. The heart rate, respiratory rate, oxygen saturations, blood pressure, adequacy of pulmonary ventilation, and response to care were monitored throughout the procedure. The physical status of the patient was re-assessed after the procedure. The Colonoscope was introduced through the anus and advanced to the terminal ileum, with identification of the appendiceal orifice and IC valve. The colonoscopy was performed without difficulty. The patient tolerated the procedure well. The quality of the bowel preparation was good. The terminal ileum, ileocecal valve, appendiceal orifice, and rectum were photographed. Scope insertion time was 2 minutes. Scope withdrawal time was 8 minutes. The total duration of the procedure was 10 minutes. Findings: The perianal and digital rectal examinations were normal. The terminal ileum appeared normal. Biopsies were taken with a cold forceps for histology. Verification of patient identification for the specimen was done by the physician and nurse using the patient's name, date and medical record number. Estimated blood loss was minimal. Normal mucosa was found in the entire colon. Biopsies for histology were taken with a cold forceps from the right colon, left colon, transverse colon and rectosigmoid colon for evaluation of microscopic colitis. Non-bleeding external and internal hemorrhoids were found during retroflexion. The hemorrhoids were medium-sized. Impression: - The examined portion of the ileum was normal. Biopsied. - Normal mucosa in the entire examined colon. Biopsied. - Non-bleeding external and internal hemorrhoids. Recommendation: - Patient has a contact number available for emergencies. The signs and symptoms of potential delayed complications were discussed with the patient. Return to normal activities tomorrow. Written discharge instructions were provided to the patient. - High fiber diet. - Continue present medications. - Use original regular Metamucil one tablespoon PO daily. - Await pathology results. - Repeat colonoscopy at age 49 for screening purposes. - Telephone GI clinic for pathology results in 2 weeks. - Return to primary care physician. Procedure Code(s): --- Professional --- 89961, Colonoscopy, flexible; with biopsy, single or multiple Diagnosis Code(s): --- Professional --- K64.8, Other hemorrhoids K52.9, Noninfective gastroenteritis and colitis, unspecified CPT copyright 2019 [employer]. All rights reserved. The codes documented in this report are preliminary and upon submarine element coordinator review may be revised to meet current compliance requirements. Newton Skinner MD Newton Skinner MD 10/29/2020 12:18:55 PM Electronically signed by Newton Skinner MD Number of Addenda: 0 Note Initiated On: 10/29/2020 11:24 AM Estimated Blood Loss: Estimated blood loss: none.
[2020-10-29 12:31] VITALS: BP 115/67
== END 2020-10-29 12:33 | disposition home or self-care (01) ==
LOC: M OPP 09:57
PROVIDERS: ATTEND Internal Medicine Gastroenterology
DX: K52.9 Noninfective gastroenteritis and colitis, unspecified (principal); R10.13 Epigastric pain; E53.8 Deficiency of other specified B group vitamins; D12.6 Benign neoplasm of colon, unspecified; K64.8 Other hemorrhoids; D13.1 Benign neoplasm of stomach; K44.9 Diaphragmatic hernia without obstruction or gangrene; K29.70 Gastritis, unspecified, without bleeding; F41.9 Anxiety disorder, unspecified; F32.9 Major depressive disorder, single episode, unspecified; E78.5 Hyperlipidemia, unspecified; G43.909 Migraine, unspecified, not intractable, without status migrainosus; Z88.2 Allergy status to sulfonamides; Z79.899 Other long term (current) drug therapy; Z80.0 Family history of malignant neoplasm of digestive organs; Z80.3 Family history of malignant neoplasm of breast; Z93.3 Colostomy status; Z80.8 Family history of malignant neoplasm of other organs or systems

== ENCOUNTER → 2021-02-18 | Outpatient (CLI) | payer BC ==
[~2021-02-18] MED LIST changes: +EMTR1TAB16 PO; -TRUVTAB PO
[2021-02-18 18:00] LABS: BASO # 0.1 10^3/uL (0.0-0.2); BASO % 0.6 % (0.0-1.0); EOS # 0.2 10^3/uL (0.0-0.5); EOS % 1.9 % (0.0-3.0); HEMATOCRIT 39.7 % (36.0-47.0); HEMOGLOBIN 12.8 g/dl (12.0-15.5); LYMPH # 3.2 10^3/uL (1.5-5.0); MEAN CORPUSCULAR HGB CONC 32.2 g/dl (32.0-36.5); MEAN CORPUSCULAR VOLUME 93.2 fl (80.0-96.0); MONO # 0.9 10^3/uL (0.0-0.8); MONO % 7.7 % (2.0-8.0); NEUTROPHILS # 6.8 10^3/uL (1.5-8.5); NEUTROPHILS % 60.4 % (36.0-66.0); PLATELET COUNT, AUTOMATED 334 10^3/uL (150-450); RED BLOOD COUNT 4.26 10^6/uL (4.00-5.40); WHITE BLOOD COUNT 11.2 10^3/uL (4.0-10.0)
[2021-02-18 18:27] LABS: BLOOD UREA NITROGEN 13 MG/DL (7-18); CALCIUM LEVEL 9.1 MG/DL (8.5-10.1); CARBON DIOXIDE LEVEL 23 MEQ/L (21-32); CHLORIDE LEVEL 108 MEQ/L (98-107); CPK CREATINE PHOSPHOKINASE 86 U/L (26-192); CREATININE FOR GFR 0.84 MG/DL (0.55-1.30); FREE T4 0.76 NG/DL (0.76-1.46); GLOMERULAR FILTRATION RATE > 60.0 (>60); GLUCOSE, FASTING 78 MG/DL (70-100); MAGNESIUM LEVEL 2.4 MG/DL (1.8-2.4); POTASSIUM SERUM 4.5 MEQ/L (3.5-5.1); SODIUM LEVEL 140 MEQ/L (136-145)
[2021-02-18 18:38] LABS: FOLATE 7.2 NG/ML; VITAMIN B12 LEVEL 377 PG/ML
[2021-02-20 21:07] LABS: ANA (HEP2) Positive (.)
== END ==
LOC: M LAB 17:11
PROVIDERS: ATTEND Physician Assistant
DX: R42 Dizziness and giddiness (principal)

== ENCOUNTER → 2021-03-19 | Outpatient (CLI) | payer BC ==
[~2021-03-19] MED LIST changes: +PROHANCE 279.3MG/ML 15ML VIAL ONE; +PROHANCE 279.3MG/ML 5ML VIAL ONE
--- NOTE | 2021-03-21 07:59 | REPVR ---
PROCEDURE INFORMATION: Exam: MR Head Without and With Contrast Exam date and time: 03/19/2021 3:33 PM Age: 35 years old Clinical indication: Pain; Headache; Migraine; Aura effect not specified; Additional info: Dizziness, giddiness TECHNIQUE: Imaging protocol: MR of the head without and with intravenous contrast. Contrast material: PROHANCE; Contrast volume: 18 ml; Contrast route: INTRAVENOUS (IV); COMPARISON: CT Head without contrast 07/31/2014 4:30 PM FINDINGS: Brain: There is a 6 mm nodule protruding from the left torus tubarius. This may represent a Thornwaldt cyst but is not fully characterized on this exam. Cerebral ventricles: Normal. No ventriculomegaly. Bones/joints: Unremarkable. Paranasal sinuses: Normal as visualized. No acute sinusitis. Mastoid air cells: Normal as visualized. No mastoid effusion. Orbital cavity: Unremarkable. Soft tissues: Unremarkable. IMPRESSION: 1. No acute intracranial findings identified. Please refer to incidental findings in body of report. 2. There is a 6 mm nodule protruding from the left torus tubarius. This may represent a Thornwaldt cyst but is not fully characterized on this exam. Visual inspection is recommended. Electronically signed by: Brett Farris On 03/21/2021 07:59:14 AM
== END ==
LOC: M PLAIMG 14:31
PROVIDERS: ATTEND Physician Assistant
DX: R93.0 Abnormal findings on diagnostic imaging of skull and head, not elsewhere classified (principal); R42 Dizziness and giddiness
CPT/HCPCS: 70553; A9576

== ENCOUNTER → 2021-06-30 | Outpatient (REF) | payer BC ==
[~2021-06-30] MED LIST changes: -PROHANCE 279.3MG/ML 15ML VIAL ONE; -PROHANCE 279.3MG/ML 5ML VIAL ONE
== END ==
LOC: M LAB REF 16:47
PROVIDERS: ATTEND Physician Assistant
DX: R35.0 Frequency of micturition (principal)

== ENCOUNTER → 2021-08-12 | Outpatient (REF) | payer BC ==
[2021-08-12 18:19] LABS: C REACTIVE PROTEIN QUANTITATIV 1.4 MG/DL (0.00-0.30)
[2021-08-12 18:24] LABS: TOTAL 25(OH) VITAMIN D 48.1 NG/ML (30.0-100.0)
== END ==
LOC: M SFHCRHEU 13:50
PROVIDERS: ATTEND Internal Medicine
DX: R79.82 Elevated C-reactive protein (CRP) (principal); R70.0 Elevated erythrocyte sedimentation rate; M54.9 Dorsalgia, unspecified; M79.10 Myalgia, unspecified site

== ENCOUNTER → 2021-08-13 | Outpatient (CLI) | payer BC ==
--- NOTE | 2021-08-13 11:06 | REP ---
INDICATION: DORSALGIA COMPARISON: None. TECHNIQUE: Single AP view of the pelvis. FINDINGS: Osseous structures, joint spaces and surrounding soft tissues are essentially age-appropriate and within normal limits. IMPRESSION: Age-appropriate pelvic radiograph. <Electronically signed by Krzysztof Calhoun > 08/13/21 [id number]
--- NOTE | 2021-08-13 11:08 | REP ---
INDICATION: PAIN COMPARISON: None. TECHNIQUE: AP, lateral, bilateral oblique and sunrise views right and left knee. FINDINGS: The right and left osseous structures and joint spaces are symmetrically intact and normal/age-appropriate. No significant degenerative changes are appreciated. There is no evidence for acute fracture or dislocation. No joint effusion identified. Surrounding soft tissues are unremarkable. No subcutaneous emphysema or radiodense foreign body. IMPRESSION: Normal symmetric bilateral knee examination. <Electronically signed by Krzysztof Calhoun > 08/13/21 [id number]
--- NOTE | 2021-08-13 11:09 | REP ---
INDICATION: PAIN COMPARISON: None. TECHNIQUE: AP, lateral, bilateral oblique views right and left hand. FINDINGS: The bilateral osseous structures and joint spaces are symmetric, intact and normal/age-appropriate. No significant degenerative changes are appreciated. There is no evidence for acute fracture or dislocation. Surrounding soft tissues are unremarkable. No subcutaneous emphysema or radiodense foreign body. IMPRESSION: Normal bilateral hand radiograph series. <Electronically signed by Krzysztof Calhoun > 08/13/21 [id number]
== END ==
LOC: M WUC 10:07
PROVIDERS: ATTEND Internal Medicine
DX: M25.569 Pain in unspecified knee (principal); M79.643 Pain in unspecified hand; M54.9 Dorsalgia, unspecified

== ENCOUNTER → 2021-09-08 | Outpatient (REF) | payer BC ==
[~2021-09-08] MED LIST changes: +OMEP-173 PO; -OMEP-218 PO
== END ==
LOC: M LAB REF 16:38
PROVIDERS: ATTEND Physician Assistant
DX: N76.0 Acute vaginitis (principal); R35.0 Frequency of micturition

== ENCOUNTER → 2021-10-17 | Outpatient (CLI) | payer BC | LOC: M PLAIMG 13:06 | PROVIDERS: ATTEND Internal Medicine | DX: R93.7 Abnormal findings on diagnostic imaging of other parts of musculoskeletal system (principal); M54.9 Dorsalgia, unspecified ==

== ENCOUNTER → 2021-12-02 | Outpatient (CLI) | payer BC | LOC: M PLAIMG 08:22 | PROVIDERS: ATTEND Internal Medicine | DX: M51.26 Other intervertebral disc displacement, lumbar region (principal); M51.27 Other intervertebral disc displacement, lumbosacral region; M51.36 Other intervertebral disc degeneration, lumbar region ==

== ENCOUNTER 2022-03-28 17:41 | Emergency (ER) | payer BC ==
[~2022-03-28] VITALS: Ht 167.6 cm; Wt 81.6 kg
[2022-03-28] MEDS ORDERED: KETOROLAC 30 MG/ML 1ML VIAL IV ONE (19:55)
[2022-03-28] MEDS ORDERED: ONDANSETRON 4MG 2ML VIAL IV ONE (19:55)
[2022-03-28] MEDS ORDERED: NS 500 ML IV ONE (19:55)
[2022-03-28 20:08] LABS: BASO % 0.3 % (0.0-1.0); EOS # 0.1 10^3/uL (0.0-0.5); EOS % 0.6 % (0.0-3.0); HEMATOCRIT 38.6 % (36.0-47.0); LYMPH # 1.5 10^3/uL (1.5-5.0); LYMPH % 10.5 % (24.0-44.0); MEAN CORPUSCULAR HEMOGLOBIN 31.2 pg (27.0-33.0); MEAN CORPUSCULAR HGB CONC 33.7 g/dl (32.0-36.5); MEAN CORPUSCULAR VOLUME 92.6 fl (80.0-96.0); MONO # 0.6 10^3/uL (0.0-0.8); MONO % 4.4 % (2.0-8.0); NEUTROPHILS # 11.6 10^3/uL (1.5-8.5); NEUTROPHILS % 83.8 % (36.0-66.0); PLATELET COUNT, AUTOMATED 315 10^3/uL (150-450); RED BLOOD COUNT 4.17 10^6/uL (4.00-5.40); WHITE BLOOD COUNT 13.9 10^3/uL (4.0-10.0)
[2022-03-28 20:26] LABS: HCG, SERUM QUALITATIVE NEGATIVE (NEGATIVE)
[2022-03-28 20:43] LABS: ALBUMIN 3.7 GM/DL (3.2-5.2); ALT/SGPT 24 U/L (12-78); BILIRUBIN,DIRECT 0.1 MG/DL (0.0-0.2); BILIRUBIN,TOTAL 0.3 MG/DL (0.2-1.0); BLOOD UREA NITROGEN 16 MG/DL (7-18); CALCIUM LEVEL 9.5 MG/DL (8.5-10.1); CARBON DIOXIDE LEVEL 25 MEQ/L (21-32); CHLORIDE LEVEL 109 MEQ/L (98-107); GLOMERULAR FILTRATION RATE > 60.0 (>60); GLUCOSE, FASTING 107 MG/DL (70-100); LIPASE 147 U/L (73-393); SODIUM LEVEL 141 MEQ/L (136-145); TOTAL PROTEIN 7.4 GM/DL (6.4-8.2)
[2022-03-28] MEDS ORDERED: cefTRIAXone SOD 1 GM in D5W MINI-BAG PLUS 50 ML IV ONE (21:00)
[2022-03-28] MEDS ORDERED: MORPHINE 4 MG/ML 1ML VIAL/SYRINGE IV ONE (22:20)
[2022-03-28] MEDS ORDERED: HYDR-3713 PO (23:04)
[2022-03-28] MEDS ORDERED: FLOM0.4C39 PO (23:04)
[2022-03-28] MEDS ORDERED: ONDA4TAB6 PO (23:04)
[2022-03-28] MEDS ORDERED: KETO10TAB PO (23:04)
[2022-03-28] MEDS ORDERED: CEFD300C41 PO (23:04)
[2022-03-28 23:17] VITALS: BP 22/67
== END 2022-03-28 23:19 | disposition home or self-care (01) ==
LOC: M ED 17:41
DX: N39.0 Urinary tract infection, site not specified (principal); N20.1 Calculus of ureter; Z87.442 Personal history of urinary calculi; Z79.3 Long term (current) use of hormonal contraceptives; Z79.899 Other long term (current) drug therapy; Z88.2 Allergy status to sulfonamides
CPT/HCPCS: 74176; 80048; 80076; 81001; 83690; 84703; 85025; 87086; 96361; 96365; 96375; 99284; J0696; J1885; J2270; J2405

== ENCOUNTER → 2022-04-01 | Outpatient (CLI) | payer BC ==
[~2022-04-01] MED LIST changes: +CEFD300C41 PO; +FLOM0.4C39 PO; +HYDR-3713 PO; +KETO10TAB PO; +ONDA4TAB6 PO
== END ==
LOC: M PLAIMG 11:43
PROVIDERS: ATTEND Physician Assistant
DX: N20.1 Calculus of ureter (principal)

== ENCOUNTER → 2022-04-10 | Outpatient (CLI) | payer BC ==
[~2022-04-10] MED LIST changes: -BUPR150T12; +BUPR150T12 PO; -DROS3TAB; +DROS3TAB PO
[2022-04-10 13:57] LABS: BASO # 0.1 10^3/uL (0.0-0.2); BASO % 0.8 % (0.0-1.0); EOS # 0.2 10^3/uL (0.0-0.5); EOS % 1.9 % (0.0-3.0); HEMATOCRIT 39.2 % (36.0-47.0); HEMOGLOBIN 12.7 g/dl (12.0-15.5); LYMPH # 2.1 10^3/uL (1.5-5.0); LYMPH % 27.1 % (24.0-44.0); MEAN CORPUSCULAR HEMOGLOBIN 30.7 pg (27.0-33.0); MEAN CORPUSCULAR HGB CONC 32.4 g/dl (32.0-36.5); MEAN CORPUSCULAR VOLUME 94.7 fl (80.0-96.0); MONO # 0.6 10^3/uL (0.0-0.8); MONO % 7.2 % (2.0-8.0); NEUTROPHILS # 4.9 10^3/uL (1.5-8.5); NEUTROPHILS % 62.6 % (36.0-66.0); PLATELET COUNT, AUTOMATED 385 10^3/uL (150-450); RED BLOOD COUNT 4.14 10^6/uL (4.00-5.40); WHITE BLOOD COUNT 7.9 10^3/uL (4.0-10.0)
[2022-04-10 14:32] LABS: BLOOD UREA NITROGEN 11 MG/DL (7-18); CALCIUM LEVEL 9.5 MG/DL (8.5-10.1); CARBON DIOXIDE LEVEL 27 MEQ/L (21-32); CHLORIDE LEVEL 109 MEQ/L (98-107); CREATININE FOR GFR 0.93 MG/DL (0.55-1.30); GLOMERULAR FILTRATION RATE > 60.0 (>60); GLUCOSE, FASTING 87 MG/DL (70-100); POTASSIUM SERUM 3.9 MEQ/L (3.5-5.1); SODIUM LEVEL 140 MEQ/L (136-145)
== END ==
LOC: M PLALAB 10:40 → M PLAIMG 10:40
PROVIDERS: ATTEND Physician Assistant
DX: N20.1 Calculus of ureter (principal)

== ENCOUNTER → 2022-04-16 | Outpatient (REF) | payer BC ==
[2022-04-16 11:46] LABS: APPEARANCE, URINE MANUAL HAZY (CLEAR); COLOR, URINE MANUAL YELLOW (YELLOW); GLUCOSE, URINE (UA) MANUAL NEGATIVE (NEGATIVE); KETONE, URINE MANUAL NEGATIVE (NEGATIVE); PH,URINE MAN 6.5 UNITS (5.0 - 7.0); PROTEIN, URINE MANUAL NEGATIVE (NEGATIVE); SPECIFIC GRAVITY,URINE MANUAL 1.015 (1.002-1.035)
[2022-04-16 11:47] LABS: BILIRUBIN, URINE MANUAL NEGATIVE (NEGATIVE); BLOOD URINE MANUAL TRACE (NEGATIVE); LEUKOCYTE ESTERASE, URINE MAN POSITIVE (NEGATIVE); NITRITE, URINE MANUAL NEGATIVE (NEGATIVE); UROBILINOGEN, URINE MANUAL NORMAL (NORMAL)
[2022-04-16 12:01] LABS: BACTERIA, URINE SMALL AMOUNT; HYALINE CAST, URINE NONE SEEN /lpf (0-1); MUCUS, URINE SMALL AMOUNT (NEGATIVE); RBC, URINE 0-1 /hpf (0-3); SQUAMOUS EPITHELIAL CELL URINE SMALL AMOUNT /hpf (SMALL AMT); WBC, URINE 15-20 /hpf (0-3)
== END ==
LOC: M SMT 10:04
PROVIDERS: ATTEND Physician Assistant
DX: N20.1 Calculus of ureter (principal)

== ENCOUNTER → 2022-04-19 | Outpatient (CLI) | payer BC | LOC: M LABSMTC 11:33 | PROVIDERS: ATTEND Anesthesiology | DX: Z01.812 Encounter for preprocedural laboratory examination (principal); Z20.822 Contact with and (suspected) exposure to COVID-19 ==

== ENCOUNTER → 2022-04-23 | Outpatient (CLI) | payer BC | LOC: M PLAIMG 07:12 | PROVIDERS: ATTEND Urology | DX: N20.0 Calculus of kidney (principal) ==

== ENCOUNTER → 2022-04-24 | Outpatient (REF) | payer BC ==
[2022-04-30 18:08] LABS: CA Oxalate Dihy 60 % (.); Ca Ox Monohydrate 10 % (.); Size 7x6 mm (.)
== END ==
LOC: M SMT 16:42
PROVIDERS: ATTEND Urology
DX: N20.0 Calculus of kidney (principal)

== ENCOUNTER → 2022-08-04 | Outpatient (REF) | payer BC | LOC: M LAB REF 16:52 | PROVIDERS: ATTEND Physician Assistant | DX: N76.0 Acute vaginitis (principal) ==

== ENCOUNTER → 2022-10-29 | Outpatient (CLI) | payer OTHER ==
[~2022-10-29] MED LIST changes: +TOPI-254 PO; -TOPI50TA9 PO
== END ==
LOC: M PLALAB 15:56 → M PLAIMG 15:56
PROVIDERS: ATTEND Physician Assistant
DX: N20.0 Calculus of kidney (principal)

== ENCOUNTER → 2023-05-10 | Outpatient (REF) | payer OTHER | LOC: M LAB REF 17:12 | PROVIDERS: ATTEND Physician Assistant | DX: J06.9 Acute upper respiratory infection, unspecified (principal) ==

== ENCOUNTER → 2023-08-30 | Outpatient (CLI) | payer OTHER ==
[~2023-08-30] MED LIST changes: +CEFD1CAP9 PO; -CEFD300C41 PO; +TOPI-21 PO; -TOPI-254 PO
== END ==
LOC: M PLAIMG 08:27
PROVIDERS: ATTEND Physician Assistant
DX: N23 Unspecified renal colic (principal); Z90.49 Acquired absence of other specified parts of digestive tract; Z87.442 Personal history of urinary calculi

== ENCOUNTER → 2023-10-15 | Outpatient (CLI) | payer OTHER ==
[2023-10-15 07:32] LABS: BASO % 0.4 % (0.0-1.0); EOS # 0.2 10^3/uL (0.0-0.5); HEMATOCRIT 40.6 % (36.0-47.0); HEMOGLOBIN 13.6 g/dl (12.0-15.5); LYMPH # 1.9 10^3/uL (1.5-5.0); LYMPH % 21.6 % (24.0-44.0); MEAN CORPUSCULAR HEMOGLOBIN 30.1 pg (27.0-33.0); MEAN CORPUSCULAR HGB CONC 33.5 g/dl (32.0-36.5); MEAN CORPUSCULAR VOLUME 89.8 fl (80.0-96.0); MONO # 0.5 10^3/uL (0.0-0.8); MONO % 5.9 % (2.0-8.0); NEUTROPHILS # 6.3 10^3/uL (1.5-8.5); NEUTROPHILS % 69.8 % (36.0-66.0); PLATELET COUNT, AUTOMATED 327 10^3/uL (150-450); RED BLOOD COUNT 4.52 10^6/uL (4.00-5.40)
[2023-10-15 07:58] LABS: TOTAL 25(OH) VITAMIN D 30.5 NG/ML (20.0-100.0)
[2023-10-15 07:59] LABS: ALBUMIN 3.5 G/DL (3.2-5.2); ALKALINE PHOSPHATASE 68 U/L (46-116); ALT/SGPT 24 U/L (7.0-40); AST/SGOT 14 U/L (<34); BILIRUBIN,TOTAL 0.5 MG/DL (0.3-1.2); BLOOD UREA NITROGEN 11 MG/DL (9-23); CALCIUM LEVEL 9.3 MG/DL (8.5-10.1); CARBON DIOXIDE LEVEL 29 MMOL/L (20-31); CHLORIDE LEVEL 105 MMOL/L (98-107); CHOLESTEROL LEVEL 240 MG/DL (<200); CHOLESTEROL RISK RATIO 3.56 (<5); CREATININE FOR GFR 0.82 MG/DL (0.55-1.30); GLOMERULAR FILTRATION RATE > 60.0 (>60); GLUCOSE, FASTING 95 MG/DL (60-100); HDL CHOLESTEROL 67.3 MG/DL (>40); LDL CHOLESTEROL 122.1 MG/DL (<100); NON-HDL-C 172.7 MG/DL; POTASSIUM SERUM 4.7 MMOL/L (3.5-5.1); SODIUM LEVEL 139 MMOL/L (136-145); THYROID STIMULATING HORMONE 4.228 uIU/ML (0.55-4.78); TOTAL PROTEIN 7.1 G/DL (5.7-8.2); TRIGLYCERIDES LEVEL 253 MG/DL (<150)
[2023-10-15 08:00] LABS: FREE T4 0.88 NG/DL (0.89-1.76)
[2023-10-15 08:13] LABS: HEMOGLOBIN A1c 5.3 % (4.0-6.0)
== END ==
LOC: M LAB 07:04
PROVIDERS: ATTEND Physician Assistant
DX: D51.9 Vitamin B12 deficiency anemia, unspecified (principal); Z13.220 Encounter for screening for lipoid disorders; Z13.29 Encounter for screening for other suspected endocrine disorder

== ENCOUNTER → 2023-12-02 | Outpatient (REF) | payer OTHER, MEDICAID | LOC: M LAB REF 17:06 | PROVIDERS: ATTEND Physician Assistant | DX: R30.0 Dysuria (principal) ==

== ENCOUNTER → 2024-05-17 | Outpatient (CLI) | payer OTHER ==
[~2024-05-17] MED LIST changes: +ONDA-282 PO; -ONDA4TAB6 PO
[2024-05-17 07:03] LABS: BASO # 0.1 10^3/uL (0.0-0.2); BASO % 0.6 % (0.0-1.0); EOS # 0.2 10^3/uL (0.0-0.5); EOS % 2.9 % (0.0-3.0); HEMATOCRIT 40.2 % (36.0-47.0); HEMOGLOBIN 13.1 g/dl (12.0-15.5); LYMPH # 2.4 10^3/uL (1.5-5.0); LYMPH % 30.7 % (24.0-44.0); MEAN CORPUSCULAR HEMOGLOBIN 29.6 pg (27.0-33.0); MEAN CORPUSCULAR HGB CONC 32.6 g/dl (32.0-36.5); MONO # 0.6 10^3/uL (0.0-0.8); NEUTROPHILS # 4.6 10^3/uL (1.5-8.5); NEUTROPHILS % 58.5 % (36.0-66.0); PLATELET COUNT, AUTOMATED 336 10^3/uL (150-450); RED BLOOD COUNT 4.42 10^6/uL (4.00-5.40); WHITE BLOOD COUNT 7.9 10^3/uL (4.0-10.0)
[2024-05-17 07:31] LABS: ALBUMIN 3.7 G/DL (3.2-5.2); ALKALINE PHOSPHATASE 81 U/L (46-116); ALT/SGPT 40 U/L (7.0-40); AST/SGOT 27 U/L (<34); BILIRUBIN,TOTAL 0.4 MG/DL (0.3-1.2); BLOOD UREA NITROGEN 17 MG/DL (9-23); CALCIUM LEVEL 9.4 MG/DL (8.5-10.1); CARBON DIOXIDE LEVEL 28 MMOL/L (20-31); CHLORIDE LEVEL 109 MMOL/L (98-107); CHOLESTEROL LEVEL 240 MG/DL (<200); CHOLESTEROL RISK RATIO 4.89 (<5); CREATININE FOR GFR 0.87 MG/DL (0.55-1.30); GLOMERULAR FILTRATION RATE > 60.0 (>60); GLUCOSE, FASTING 90 MG/DL (60-100); LDL CHOLESTEROL 162.4 MG/DL (<100); POTASSIUM SERUM 4.3 MMOL/L (3.5-5.1); SODIUM LEVEL 140 MMOL/L (136-145); TRIGLYCERIDES LEVEL 143 MG/DL (<150)
[2024-05-17 07:32] LABS: TOTAL 25(OH) VITAMIN D 51.8 NG/ML (20.0-100.0)
[2024-05-17 07:33] LABS: FREE T4 0.85 NG/DL (0.89-1.76); THYROID STIMULATING HORMONE 4.093 uIU/ML (0.55-4.78); VITAMIN B12 LEVEL 485 PG/ML (211-911)
== END ==
LOC: M LAB 06:09
PROVIDERS: ATTEND Physician Assistant
DX: Z13.29 Encounter for screening for other suspected endocrine disorder (principal); E78.2 Mixed hyperlipidemia

== ENCOUNTER → 2024-06-19 | Outpatient (REF) | payer OTHER | LOC: M LAB REF 17:12 | PROVIDERS: ATTEND Physician Assistant | DX: N39.0 Urinary tract infection, site not specified (principal) ==

== ENCOUNTER → 2024-10-31 | Outpatient (CLI) | payer OTHER | LOC: M PLAIMG 08:03 | PROVIDERS: ATTEND Physician Assistant | DX: Z87.442 Personal history of urinary calculi (principal) ==

== ENCOUNTER → 2024-11-02 | Outpatient (REF) | payer OTHER ==
[2024-11-02 14:29] LABS: APPEARANCE, URINE CLEAR (CLEAR); BACTERIA, URINE AUTO NEGATIVE (NEGATIVE); BILIRUBIN, URINE AUTO NEGATIVE (NEGATIVE); BLOOD, URINE BLOOD 1+ (NEGATIVE); COLOR, URINE STRAW (YELLOW); GLUCOSE, URINE (UA) AUTO NEGATIVE (NEGATIVE); KETONE, URINE AUTO NEGATIVE (NEGATIVE); LEUKOCYTE ESTERASE, URINE AUTO NEGATIVE (NEGATIVE); NITRITE, URINE AUTO NEGATIVE (NEGATIVE); PROTEIN, URINE AUTO NEGATIVE (NEGATIVE); RBC, URINE AUTO 0 /HPF (0-3); SPECIFIC GRAVITY URINE AUTO 1.005 (1.002-1.035); SQUAMOUS EPITHELIAL CELL UR AU 0 /HPF (0-6); UROBILINOGEN, URINE AUTO 0.2 mg/dL (0.0-2.0); WBC, URINE AUTO 0 /HPF (0-3)
== END ==
LOC: M SMT 12:58
PROVIDERS: ATTEND Physician Assistant
DX: R35.0 Frequency of micturition (principal)

== ENCOUNTER → 2025-01-10 | Outpatient (CLI) | payer OTHER ==
[~2025-01-10] MED LIST changes: -FLOM0.4C39 PO; +TAMS-18 PO
[2025-01-10 06:53] LABS: BASO # 0.1 10^3/uL (0.0-0.2); BASO % 0.7 % (0.0-1.0); EOS # 0.3 10^3/uL (0.0-0.5); HEMATOCRIT 41.5 % (36.0-47.0); HEMOGLOBIN 13.9 g/dl (12.0-15.5); LYMPH # 2.1 10^3/uL (1.5-5.0); MEAN CORPUSCULAR HGB CONC 33.5 g/dl (32.0-36.5); MEAN CORPUSCULAR VOLUME 89.6 fl (80.0-96.0); MONO # 0.7 10^3/uL (0.0-0.8); MONO % 8.7 % (2.0-8.0); NEUTROPHILS # 5.2 10^3/uL (1.5-8.5); NEUTROPHILS % 61.4 % (36.0-66.0); PLATELET COUNT, AUTOMATED 356 10^3/uL (150-450); RED BLOOD COUNT 4.63 10^6/uL (4.00-5.40); WHITE BLOOD COUNT 8.5 10^3/uL (4.0-10.0)
[2025-01-10 07:25] LABS: TOTAL IRON BINDING CAPACITY 339 UG/DL (250-425)
[2025-01-10 07:26] LABS: ALBUMIN 3.6 G/DL (3.2-5.2); ALKALINE PHOSPHATASE 72 U/L (35-104); ALT/SGPT 23 U/L (7.0-40); AST/SGOT 22 U/L (<34); BILIRUBIN,TOTAL 0.4 MG/DL (0.3-1.2); BLOOD UREA NITROGEN 14 MG/DL (9-23); CALCIUM LEVEL 9.8 MG/DL (8.5-10.1); CARBON DIOXIDE LEVEL 28 MMOL/L (20-31); CHLORIDE LEVEL 105 MMOL/L (98-107); CHOLESTEROL LEVEL 283 MG/DL (<200); CHOLESTEROL RISK RATIO 4.02 (<5); CREATININE FOR GFR 0.74 MG/DL (0.55-1.30); GLOMERULAR FILTRATION RATE > 90.0 (>58); GLUCOSE, FASTING 102 MG/DL (60-100); HDL CHOLESTEROL 70.3 MG/DL (>40); IRON (FE) 64 UG/DL (50-170); LDL CHOLESTEROL 173.3 MG/DL (<100); NON-HDL-C 212.7 MG/DL; PERCENT SATURATION 18.9 % (13.2-45.0); POTASSIUM SERUM 4.6 MMOL/L (3.5-5.1); SODIUM LEVEL 143 MMOL/L (136-145); TOTAL PROTEIN 7.3 G/DL (5.7-8.2); TRIGLYCERIDES LEVEL 197 MG/DL (<150)
[2025-01-10 07:27] LABS: FREE T4 0.93 NG/DL (0.89-1.76); THYROID STIMULATING HORMONE 2.306 uIU/ML (0.55-4.78)
[2025-01-10 07:28] LABS: FERRITIN 49.1 NG/ML (7.3-270.7); TOTAL 25(OH) VITAMIN D 68.6 NG/ML (20.0-100.0); VITAMIN B12 LEVEL 529 PG/ML (211-911)
== END ==
LOC: M LAB 06:19
PROVIDERS: ATTEND Physician Assistant
DX: E78.2 Mixed hyperlipidemia (principal); E55.9 Vitamin D deficiency, unspecified; D51.9 Vitamin B12 deficiency anemia, unspecified; K21.00 Gastro-esophageal reflux disease with esophagitis, without bleeding; G43.009 Migraine without aura, not intractable, without status migrainosus

== ENCOUNTER 2025-04-03 14:30 | Emergency (ER) | payer OTHER ==
[~2025-04-03] VITALS: Ht 167.6 cm; Wt 98.7 kg
[2025-04-03] MEDS ORDERED: ISOVUE-370 76% 100 ML VIAL As Ordered ONE (15:08)
[2025-04-03 15:09] LABS: BASO # 0.1 10^3/uL (0.0-0.2); BASO % 0.6 % (0.0-1.0); EOS # 0.2 10^3/uL (0.0-0.5); EOS % 1.8 % (0.0-3.0); LYMPH # 3.0 10^3/uL (1.5-5.0); LYMPH % 27.7 % (24.0-44.0); MONO # 0.6 10^3/uL (0.0-0.8); MONO % 5.9 % (2.0-8.0); NEUTROPHILS # 7.0 10^3/uL (1.5-8.5); NEUTROPHILS % 63.7 % (36.0-66.0); PLATELET COUNT, AUTOMATED 385 10^3/uL (150-450)
[2025-04-03 15:24] LABS: INR 0.85
[2025-04-03 15:38] LABS: ALT/SGPT 32 U/L (7.0-40); AST/SGOT 30 U/L (<34)
[2025-04-03 15:41] LABS: ETHYL ALCOHOL (ETHANOL) < 0.003 % (0.000-0.010)
[2025-04-03 15:43] LABS: HCG, SERUM QUALITATIVE NEGATIVE (NEGATIVE)
[2025-04-03 16:14] LABS: AMPHETAMINES LEVEL URINE NEGATIVE (NEGATIVE); BARBITURATES URINE NEGATIVE (NEGATIVE); BENZODIAZEPINES URINE NEGATIVE (NEGATIVE); CANNABINOIDS URINE NEGATIVE (NEGATIVE); COCAINE METABOLITE URINE NEGATIVE (NEGATIVE); METHADONE URINE NEGATIVE (NEGATIVE); OPIATES URINE NEGATIVE (NEGATIVE); PHENCYCLIDINE URINE NEGATIVE (NEGATIVE)
[2025-04-03] MEDS: NS (Normal Saline) 0.9% 1,000 ML IV ONE (19:14)
[2025-04-03] MEDS: ONDANSETRON 4MG 2ML VIAL IV ONE (20:07)
[2025-04-03 22:45] VITALS: BP 149/89; TEMP 98.3; O2SAT 98
== END 2025-04-03 23:03 | disposition home or self-care (01) ==
LOC: M ED 14:30
DX: R42 Dizziness and giddiness (principal); G43.909 Migraine, unspecified, not intractable, without status migrainosus; E78.5 Hyperlipidemia, unspecified; Z88.2 Allergy status to sulfonamides; Z79.1 Long term (current) use of non-steroidal anti-inflammatories (NSAID); Z79.899 Other long term (current) drug therapy
CPT/HCPCS: 70450; 70496; 70498; 70544; 70551; 71045; 80047; 80076; 80307; 82077; 84703; 85025; 85610; 85730; 93005; 93041; 94760; 96361; 96374; 99285; J2405; Q9967

== ENCOUNTER → 2025-06-11 | Outpatient (REF) | payer OTHER ==
[2025-06-14 09:07] LABS: HPV APTIMA Detected (Not Detected)
== END ==
LOC: M LAB REF 15:24
PROVIDERS: ATTEND Nurse Practitioner Family
DX: Z12.4 Encounter for screening for malignant neoplasm of cervix (principal); Z11.51 Encounter for screening for human papillomavirus (HPV)

== ENCOUNTER → 2025-06-11 | Outpatient (CLI) | payer OTHER | LOC: M WHC 10:17 | PROVIDERS: ATTEND Nurse Practitioner Family | DX: Z12.31 Encounter for screening mammogram for malignant neoplasm of breast (principal); R92.313 Mammographic fatty tissue density, bilateral breasts ==

== ENCOUNTER → 2025-07-04 | Outpatient (CLI) | payer OTHER | LOC: M LAB 08:18 | PROVIDERS: ATTEND Physician Assistant | DX: Z12.31 Encounter for screening mammogram for malignant neoplasm of breast (principal); Z80.3 Family history of malignant neoplasm of breast; Z80.0 Family history of malignant neoplasm of digestive organs; Z13.79 Encounter for other screening for genetic and chromosomal anomalies; Z80.42 Family history of malignant neoplasm of prostate; Z53.9 Procedure and treatment not carried out, unspecified reason ==

== ENCOUNTER → 2025-07-04 | Outpatient (CLI) | payer OTHER ==
[2025-07-04 09:18] LABS: PLATELET COUNT, AUTOMATED 373 10^3/uL (150-450)
[2025-07-04 09:37] LABS: INR 0.91
[2025-07-04 09:38] LABS: ALT/SGPT 24 U/L (7.0-40); AST/SGOT 26 U/L (<34); CALCIUM LEVEL 9.6 MG/DL (8.5-10.1); CARBON DIOXIDE LEVEL 26 MMOL/L (20-31); CHLORIDE LEVEL 105 MMOL/L (98-107); CREATININE FOR GFR 0.78 MG/DL (0.55-1.30); GLOMERULAR FILTRATION RATE > 90.0 (>58); POTASSIUM SERUM 4.5 MMOL/L (3.5-5.1); SODIUM LEVEL 141 MMOL/L (136-145)
== END ==
LOC: M LAB 08:13
PROVIDERS: ATTEND Physician Assistant
DX: I67.1 Cerebral aneurysm, nonruptured (principal)

== ENCOUNTER → 2025-07-31 | Outpatient (CLI) | payer BC, OTHER ==
[~2025-07-31] MED LIST changes: +DROS1TAB PO; -DROS3TAB PO; -OCEL3TAB PO; +OCEL3TAB2 PO
[2025-07-31 09:42] LABS: BASO # 0.1 10^3/uL (0.0-0.2); BASO % 0.7 % (0.0-1.0); EOS # 0.2 10^3/uL (0.0-0.5); EOS % 2.1 % (0.0-3.0); LYMPH # 2.2 10^3/uL (1.5-5.0); LYMPH % 23.4 % (24.0-44.0); MONO # 0.7 10^3/uL (0.0-0.8); MONO % 7.6 % (2.0-8.0); NEUTROPHILS # 6.1 10^3/uL (1.5-8.5); NEUTROPHILS % 66.0 % (36.0-66.0); PLATELET COUNT, AUTOMATED 401 10^3/uL (150-450)
[2025-07-31 10:00] LABS: FREE T4 0.95 NG/DL (0.89-1.76)
[2025-07-31 10:02] LABS: C REACTIVE PROTEIN QUANTITATIV 1.96 MG/DL (<1.0); VITAMIN B12 LEVEL 337 PG/ML (211-911)
[2025-07-31 10:03] LABS: ALT/SGPT 24 U/L (7.0-40); AST/SGOT 21 U/L (<34); CALCIUM LEVEL 9.3 MG/DL (8.5-10.1); CARBON DIOXIDE LEVEL 26 MMOL/L (20-31); CHLORIDE LEVEL 101 MMOL/L (98-107); CPK CREATINE PHOSPHOKINASE 79 U/L (34-145); CREATININE FOR GFR 0.82 MG/DL (0.55-1.30); GLOMERULAR FILTRATION RATE > 90.0 (>58); POTASSIUM SERUM 4.2 MMOL/L (3.5-5.1); RHEUMATOID FACTOR QUANT 3.6 IU/ML (<14); SODIUM LEVEL 138 MMOL/L (136-145)
[2025-07-31 10:04] LABS: THYROID PEROXIDASE ANTIBODY 37 U/ML (<60.0)
[2025-08-01 13:17] LABS: ANTI SCLERODERMA ANTIBODIES <1.0 NEG AI (<1.0 NEG)
[2025-08-02 07:52] LABS: THRYOGLOBULIN ANTIBODIES (ATA) < 1 IU/mL (< or = 1); THYROGLOBULIN QUANTITATIVE 22.4 ng/mL (2.8-40.9)
== END ==
LOC: M LAB 07:53
PROVIDERS: ATTEND Physician Assistant
DX: R76.0 Raised antibody titer (principal); D51.9 Vitamin B12 deficiency anemia, unspecified